=== PATIENT | male | born 1945 | race Caucasian/White ===

== ENCOUNTER 2017-07-06 07:14 | Day surgery (SDC) | payer MEDICARE, OTHER ==
[2017-07-06] MEDS ORDERED: Dextrose 5%-Lactated Ringers 1,000 ML IV SCH (07:45)
[2017-07-06] MEDS ORDERED: Glycopyrrolate 0.2 MG/ML 2 ML SDV IVPUSH ONE (08:15)
[2017-07-06] MEDS ORDERED: fentaNYL 100 MCG/2 ML SDV ONE (08:34)
[2017-07-06] MEDS ORDERED: Propofol 200 MG/20 ML SDV ONE (08:34)
[2017-07-06 09:49] VITALS: BP 138/81
--- NOTE | 2017-07-12 11:02 | OR ---
DATE OF PROCEDURE: 07/06/2017 PREOPERATIVE DIAGNOSIS: Longstanding gastroesophageal reflux disease. POSTOPERATIVE DIAGNOSES: 1. 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 2. Mild patchy antral gastritis. OPERATIVE PROCEDURES: Esophagogastroduodenoscopy with: 1. Biopsies of esophagogastric junction for histologic evaluation. 2. Biopsies of antrum for CLOtest. ANESTHESIA: IV sedation. INDICATIONS FOR PROCEDURE: This is a 71-year-old with longstanding gastroesophageal reflux disease, who presently is on omeprazole 40 mg a day, which he has been on long-term. He has some occasional breakthrough heartburn, but in general was reasonably well controlled. To rule out problems such as Beltran esophagus or other complications of longstanding reflux disease, the patient is to undergo an upper endoscopy with biopsies as indicated. The potential risks including bleeding and perforation were discussed, and the patient wished to proceed. DETAILS OF PROCEDURE: The patient was taken to the operating room and placed in a left lateral decubitus position. IV sedation was administered, after which the upper GI endoscope was passed orally through the length of the esophagus and into the stomach with retroflexion view of the fundus, and thereafter through the pyloric channel and into the proximal duodenum. Findings included normal hypopharynx, larynx, upper esophageal sphincter, and esophageal body. At the EG junction, the patient was noted to have a small degree of hiatal hernia present, 1 cm. This was associated with significant inflammation grossly at the esophagogastric junction. 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 There was no flacking or stricture or any other signs of neoplasia per se. Within the stomach, there was some mild redness in the antrum and the pyloric channel. Duodenum at the junction of the third and fourth portions were unremarkable. At this point, biopsies were obtained from the antrum and sent for CLOtest for H. pylori. Multiple biopsies have been obtained from esophagogastric junction and sent for histologic evaluation. Minimal bleeding from the biopsy sites was seen, and the procedure then concluded. The patient was taken to the recovery room in satisfactory condition. Recommendation would be to continue the present medical management. If he is found to have Barretts esophagus, we will contact the patient regarding appropriate followup endoscopies. Otherwise, he will be found for routine care. Alfonso Miller MD /[id number]
== END 2017-07-06 09:50 | disposition home or self-care (01) ==
LOC: JP.SDS 07:14
PROVIDERS: ATTEND Surgery
DX: K21.9 Gastro-esophageal reflux disease without esophagitis (principal); K29.70 Gastritis, unspecified, without bleeding; I10 Essential (primary) hypertension; Z79.899 Other long term (current) drug therapy
CPT/HCPCS: 43239; 87081; 88305; J2704; J3010; J7042; J3490

== ENCOUNTER 2017-07-26 11:43 | Emergency (ER) | payer MEDICARE, OTHER ==
[2017-07-26 12:52] VITALS: BP 126/71
--- NOTE | 2017-07-26 13:16 | EDM.PDOC ---
ED HPI GENERAL MEDICAL PROBLEM - General Chief Complaint: Syncope Stated Complaint: DIZINESS Time Seen by Provider: 07/26/17 13:00 Source of Information: Reports: Patient, EMS History Limitations: Reports: No Limitations - History of Present Illness INITIAL COMMENTS - FREE TEXT/NARRATIVE: 71-year-old male was giving some presentation when he felt lightheaded and uncomfortable. He became diaphoretic and felt he was going to faint but tried to "push through it". He did have to stop short however and when he was trying to sit down he passed out. When he came to he was still somewhat confused but had no shortness of breath, did not injure himself, had no chest pain or palpitations. He did donate blood several days ago. His hemoglobin at that time was 14.1. He's now feeling very near baseline. Glucose was checked by EMS, 134. He has been in a stable sinus rhythm throughout. Onset: Sudden Duration: Hour(s): (Within the last 2 hours) Severity: Moderate Associated Symptoms: Reports: Diaphoresis, Malaise, Syncope, Weakness. Denies: Fever/Chills, Loss of Appetite - Related Data Allergies Allergy/AdvReac Type Severity Reaction Status Date / Time No Known Allergies Allergy Verified 07/26/17 12:43 Home Meds: Home Meds Cyanocobalamin (Vitamin B-12) [Vitamin B-12] 1,000 mcg PO DAILY 04/08/14 [ History] Omeprazole Magnesium [Prilosec Otc] 40 mg PO DAILY 04/08/14 [History] Terazosin [Hytrin] 5 mg PO DAILY 04/08/14 [History] Oxybutynin Chloride [Ditropan Xl] 5 mg PO BID PRN 12/17/14 [History] Past Medical History HEENT History: Reports: Other (See Below) Other HEENT History: Retinol tear Gastrointestinal History: Reports: GERD Genitourinary History: Reports: Prostate Disorder, Renal Calculus Musculoskeletal History: Reports: Osteoarthritis Other Musculoskeletal History: Necrotic knee - Infectious Disease History Infectious Disease History: Reports: Chicken Pox, Measles - Past Surgical History HEENT Surgical History: Reports: Other (See Below) Other HEENT Surgeries/Procedures: Retinol repair GI Surgical History: Reports: Colonoscopy, EGD Male Surgical History: Reports: None Social & Family History - Tobacco Use Smoking Status *Q: Never Smoker - Caffeine Use Caffeine Use: Reports: Coffee ED ROS GENERAL - Review of Systems Review Of Systems: See Below Constitutional: Reports: Malaise, Weakness. Denies: Fever, Chills HEENT: Reports: No Symptoms Respiratory: Denies: Shortness of Breath Cardiovascular: Denies: Chest Pain, Palpitations GI/Abdominal: Denies: Abdominal Pain, Nausea, Vomiting : Reports: No Symptoms Musculoskeletal: Reports: No Symptoms Skin: Reports: Diaphoresis Neurological: Reports: Syncope. Denies: Headache - Physical Exam Exam: See Below Exam Limited By: No Limitations General Appearance: Alert, No Apparent Distress Eye Exam: Bilateral Eye: Normal Inspection Throat/Mouth: Normal Inspection Head Exam: Atraumatic Respiratory/Chest: No Respiratory Distress, Lungs Clear Cardiovascular: Regular Rate, Rhythm Neuro Exam (Abbreviated): Alert, Oriented, No Motor/Sensory Deficits Extremities: No: Pedal Edema Psychiatric: Normal Affect, Normal Mood Skin Exam: Warm, Dry Course - Vital Signs Last Recorded V/S: Last Vital Signs Temp 97.7 F 07/26/17 12:51 Pulse 67 07/26/17 12:51 Resp 14 07/26/17 12:51 BP 126/71 07/26/17 12:51 Pulse Ox 98 07/26/17 12:51 - Orders/Labs/Meds Labs: Laboratory Tests 07/26/17 07/26/17 Range/Units 12:59 13:07 WBC 7.1 (4.5-11.0) K/uL RBC 4.22 L (4.30-5.90) M/uL Hgb 12.8 (12.0-15.0) g/dL Hct 38.5 L (40.0-54.0) % MCV 91 (80-98) fL MCH 30 (27-31) pg MCHC 33 (32-36) % Plt Count 254 (150-400) K/uL Neut % (Auto) 73 H (36-66) % Lymph % (Auto) 18 L (24-44) % Noble % (Auto) 7 H (2-6) % Eos % (Auto) 1 L (2-4) % Baso % (Auto) 0 (0-1) % Sodium 140 (140-148) mmol/L Potassium 4.0 (3.6-5.2) mmol/L Chloride 104 (100-108) mmol/L Carbon Dioxide 24 (21-32) mmol/L Anion Gap 11.6 (5.0-14.0) mmol/L BUN 9 (7-18) mg/dL Creatinine 0.7 L (0.8-1.3) mg/dL Est Cr Clr Drug Dosing 82.98 mL/min Estimated GFR (MDRD) > 60 (>60) Glucose 127 H (74-106) mg/dL Calcium 8.3 L (8.5-10.1) mg/dL - Re-Assessments/Exams Free Text/Narrative Re-Assessment/Exam: 07/26/17 13:15 Patient was kept on cardiac monitoring and remained in sinus rhythm throughout the hour and a half he was in the emergency room. CBC and BMP were obtained. He developed no symptoms. 07/26/17 13:39 CBC revealed a hemoglobin of 12.8. Chemistries are reassuring. Patient remained in sinus rhythm and did not redevelops symptoms, will be discharged with information describing vasovagal syncope. Departure - Departure Time of Disposition: 13:51 Disposition: Home, Self-Care 01 Condition: Good Clinical Impression: Vasovagal syncope - Discharge Information Instructions: Vasovagal Syncope, Adult Referrals: PCP,None [Primary Care Provider] - Forms: ED Department Discharge Care Plan Goals: Get plenty of fluids, increase activity as tolerated and continue regular medications. Return or recheck at any time if worsening or concerns.
== END 2017-07-26 13:51 | disposition home or self-care (01) ==
LOC: JP.ED 11:43
DX: R55 Syncope and collapse (principal); K21.9 Gastro-esophageal reflux disease without esophagitis; M19.90 Unspecified osteoarthritis, unspecified site; Z79.899 Other long term (current) drug therapy
CPT/HCPCS: 36415; 80048; 85025; 99283; 99284